=== PATIENT | female | born 1985 | race Hispanic/Latino ===

== ENCOUNTER → 2018-03-07 | Emergency (ER) | payer BC ==
[~2018-03-07] VITALS: Ht 157.5 cm; Wt 68.0 kg
[~2018-03-07] MED LIST: BACTRIM DS TAB1 EACH PO; NORCO 5-325 TA1 EACH PO
--- OUTSIDE RECORDS SUMMARY | ~2018-03-07 | XMS | Clinical Summary ---
Demographics + + + | Address | [address] | | | [place] [address] | + + + | Home Phone | | + + + | Preferred Language | Unknown | + + + | Marital Status | | + + + | Baptism Affiliation | Unknown | + + + | Race | Unknown | + + + | Ethnic Group | Unknown | + + + Author + + + | Author | [facility] [employer] [facility] [facility] | + + + | Organization | [facility] | + + + | Address | Unknown | + + + | Phone | Unavailable | + + + Support + + +---------+ + | Name | Relationship | Address | Phone | + + +---------+ + | Michael Umana | ECON | Unknown | | | e | | | | + + +---------+ + Care Team Providers + +------+ + | Care Bank Manager Name | Role | Phone | + +------+ + | Medicine, [place] | PP | Unavailable | | Family | | | + +------+ + Allergies No Known Allergies Current Medications No known medications Active Problems + + + | Problem | Noted Date | + + + | Palpitations | 08/15/2017 | + + + | SOB (shortness of breath) on exertion | 08/15/2017 | + + + Family History + + +------+ + | Medical History | Relation | Name | Comments | + + +------+ + | Kidney disease | Mother | | | + + +------+ + | Osteoarthritis | Mother | | | + + +------+ + + +------+--------+ + | Relation | Name | Status | Comments | + +------+--------+ + | Mother | | Alive | | + +------+--------+ + Social History + +-------+ +--------+------+ | Tobacco Use | Types | Packs/Day | Years | Date | | | | | Used | | + +-------+ +--------+------+ | Never Smoker | | | | | + +-------+ +--------+------+ + +---+---+---+ | Smokeless Tobacco: | | | | | Never Used | | | | + +---+---+---+ + + +---------+ + | Alcohol Use | Drinks/We | oz/Week | Comments | | | ek | | | + + +---------+ + | Yes | | | occ | + + +---------+ + + + + | Sex Assigned at | Date Recorded | | | | + + + | Not on file | | + + + Last Filed Vital Signs + + + + | Vital Sign | Reading | Time Taken | + + + + | Blood Pressure | 112/62 | 09/11/2017 2:35 PM PDT | + + + + | Pulse | 100 | 09/11/2017 2:35 PM PDT | + + + + | Temperature | 37.1 C (98.7 F) | 04/24/2014 3:13 PM PST | + + + + | Respiratory Rate | 18 | 09/11/2017 2:35 PM PDT | + + + + | Oxygen Saturation | 99% | 08/15/2017 10:45 AM PDT | + + + + | Inhaled Oxygen | - | - | | Concentration | | | + + + + | Weight | 68.5 kg (151 lb) | 09/11/2017 2:35 PM PDT | + + + + | Height | 152.4 cm (5') | 09/11/2017 2:35 PM PDT | + + + + | Body Mass Index | 29.49 | 09/11/2017 2:35 PM PDT | + + + + Plan of Treatment + + + + + | Health Maintenance | Due Date | Last Done | Comments | + + + + + | Cervical Cancer | | | | | Screening (Pap) | 7 | | | + + + + + | Vaccine: Influenza | | | | | (#1) | 8 | | | + + + + + | Vaccine: | | 08/02/2016, 08/15/2008 | | | Dtap/Tdap/Td (3 - | 7 | | | | Td) | | | | + + + + + Results Not on filefrom Last 3 Months Insurance +---------+--------+ +------+-------+ + | Payer | Benefi | Subscriber | Type | Phone | Address | | | t Plan | ID | | | | | | / | | | | | | | Group | | | | | +---------+--------+ +------+-------+ + | PREMERA | PREMER | [id number] | | | [address] [address] | | | [employer] BLUE | 0001 | | | [place], [place] | | | [place]ARD | | | | [phone] | +---------+--------+ +------+-------+ + + +--------+ +--------+ + + | Guarantor Name | Accoun | Relation to | Date | Phone | Billing Address | | | t Type | Patient | of | | | | | | | | | | + +--------+ +--------+ + + | SERA HORN | Person | Self [birth year] Home: | [address] | | | al/Fam | | 1985 | [phone] | [address] [place] | | | [place] | | | [address] | [phone] | + +--------+ +--------+ + +"
--- OUTSIDE RECORDS SUMMARY | ~2018-03-07 | XMS | Clinical Summary ---
Demographics + + + | Address | [address] | | | [place] [address] | + + + | Home Phone | | + + + | Preferred Language | Unknown | + + + | Marital Status | | + + + | Sikhism Affiliation | Unknown | + + + | Race | Unknown | + + + | Ethnic Group | Unknown | + + + Author + + + | Author | [facility] [employer] | + + + | Organization | [facility] | + + + | Address [...] Team Providers + +------+ + | Care Pickling Operator Name | Role | Phone | + +------+ + | Medicine, [place] | PP | Unavailable | | Family [...] +------+-------+ + | PREMERA | PREMER | [id number] | | | [address] [address] | | | [place] BLUE | [address] | | | [place], [place] | | | CARD | | | | [phone] | +---------+--------+ +------+-------+ + + +--------+ +--------+ [...] | [place] | | | [address] | [phone] | + +--------+ +--------+ + +"
== END ==
LOC: ED 23:29
DX: O20.9 Hemorrhage in early pregnancy, unspecified (principal); Z3A.01 Less than 8 weeks gestation of pregnancy
CPT/HCPCS: 76801; 76817; 80048; 81001; 84702; 85025; 86900; 86901; 99284

== ENCOUNTER 2019-06-28 19:50 | Inpatient (IN) | payer BC ==
[~2019-06-28] VITALS: Ht 154.9 cm; Wt 89.0 kg
--- NOTE | 2019-06-28 20:40 | PR ---
[facility] [address] [place], [place] [address] Signed Progress Notes IP Datetime Report Generated by CPN: 06/28/2019 20:39 PROGRESS NOTES: [id number] Impression: Normal progression of labor Procedures: Artificial ROM Plan: Continue present management; Anticipate Vaginal Delivery VITAL SIGNS: [id number] Vital Signs: Reviewed; Within Normal Limits EXAM: [id number] Dilatation: 8.0 Effacement: 80 Station: -3 Uterine Contractions: every 2-3 minutes MEMBRANES: [id number] Membrane Status: Intact ROM Note: AROM without difficulty with moderated amount clear fluid. Head applied to cervix after AROM Fetus A: [id number] FHR Baseline: 120 Variability: Moderate 6-25bpm Accelerations: 15X15 Decelerations: None Presentation: Vertex Fetus B: [id number] Signing Physician: Ace Castanon MD Copies: ~ *Electronically Signed* 06/28/192038 ACE CASTANON MD PATIENT NAME: SERA DELGADILLO PROGRESS NOTE DATE OF : 87 PHYSICIAN: ACE CASTANON MD RPT #: [id number] REPORT IS CONFIDENTIAL AND NOT TO BE RELEASED WITHOUT AUTHORIZATION
[2019-06-29] MEDS ORDERED: PRENATAL VITAM1 EAC2 PO (04:21)
[2019-06-29] MEDS ORDERED: OMEGA 3 1,0001 EACH PO (04:21)
--- NOTE | 2019-06-29 07:35 | PR ---
[facility] [address] [facility] [place], [place] [address] Signed PP Progress Notes Datetime Report Generated by MISSY: 06/29/2019 07:35 SUBJECTIVE: [id number] Pain: Within normal limits Vital Signs: [id number] Vital Signs: Reviewed; Within Normal Limits EXAM: [id number] Cardiovascular: Not Done Respiratory: Not Done Abdomen/Uterus: Abnormal Lochia: Normal Vulva/Perineum: Not Done Breasts: Not Done CVA Tenderness: Not Done Extremities: Normal Incision: Not Applicable Progress: Normal Exam Comments: Fundus firm, NT @ U-1. H/H 10.8/32.5, WBC 12.4, plat 259k IMPRESSION/PLAN/PROCEDURES: [id number] Impression: Normal progression Plan: Continue present management Progress Notes: Doing well. Will work on breast feeding today with probable D/C in am. Signing Physician: Selma Butts MD Copies: ~ *Electronically Signed* 06/29/19 0735 SELMA BUTTS MD PATIENT NAME: SERA DELGADILLO PROGRESS NOTE DATE OF : 87 PHYSICIAN: SELMA BUTTS MD RPT #: [id number] REPORT IS CONFIDENTIAL AND NOT TO BE RELEASED WITHOUT AUTHORIZATION
--- NOTE | 2019-06-30 09:57 | PR ---
[facility] [address] [address] [place], [place] [address] Signed PP Progress Notes Datetime Report Generated by CPNarciso: 06/30/2019 09:57 SUBJECTIVE: [id number] Pain: Within normal limits Vital Signs: [id number] Vital Signs: Reviewed; Within Normal Limits EXAM: [id number] Cardiovascular: Not Done Respiratory: Not Done Abdomen/Uterus: Abnormal Lochia: Normal Vulva/Perineum: Not Done Breasts: Not Done CVA Tenderness: Not Done Extremities: Normal Incision: Not Applicable Progress: Abnormal Exam Comments: Fundus firm, NT @ U-1. IMPRESSION/PLAN/PROCEDURES: [id number] Impression: Normal progression Plan: Discharge Progress Notes: Doing well. She is ready for D/C. Signing Physician: Selma Butts MD Copies: ~ *Electronically Signed* 06/30/19 0957 SELMA BUTTS MD PATIENT NAME: SERA DELGADILLO PROGRESS NOTE DATE OF : 87 PHYSICIAN: SELMA BUTTS MD RPT #: [id number] REPORT IS CONFIDENTIAL AND NOT TO BE RELEASED WITHOUT AUTHORIZATION
== END 2019-06-30 14:54 | disposition home or self-care (01) | DRG 807 ==
LOC: FBCO 19:50 → FBC 20:00
PROVIDERS: ADMIT General Practice
PROC: 10E0XZZ Delivery of Products of Conception, External Approach (ICD-10-PCS; principal; 2019-06-28)
PROC: 0HQ9XZZ Repair Perineum Skin, External Approach (ICD-10-PCS; 2019-06-28)
PROC: 10907ZC Drainage of Amniotic Fluid, Therapeutic from Products of Conception, Via Natural or Artificial Opening (ICD-10-PCS; 2019-06-28)
DX: O99.214 Obesity complicating childbirth (principal); Z37.0 Single live birth; E66.9 Obesity, unspecified; O70.0 First degree perineal laceration during delivery; Z3A.39 39 weeks gestation of pregnancy; O99.72 Diseases of the skin and subcutaneous tissue complicating childbirth; L70.0 Acne vulgaris
CPT/HCPCS: 36415; 85027; A9270; J2590